=== PATIENT | female | born 1960 | race American Indian/Alaskan Native ===

== ENCOUNTER 2019-01-03 09:58 | Outpatient (CLI) | payer OTHER ==
--- NOTE | 2019-01-03 12:13 | Mammography Report ---
BILATERAL DIGITAL SCREENING MAMMOGRAM WITH CAD INDICATION: Routine screening mammography. TECHNIQUE: Digital bilateral 2D mammography was obtained in the craniocaudal and mediolateral obliq ue projections. This examination was interpreted with the benefit of Computer-Aided Detection analysi s. COMPARISON: None. FINDINGS: Breast Density: The breasts are almost entirely fatty. No mass, architectural distortion or suspicious calcifications. IMPRESSION:No mammographic evidence of malignancy. BI-RADS Category 1: Negative. No mammographic evidence of malignancy. Recommend routine screening m ammography in one year. A "normal" or negative report should not discourage follow up or biopsy of a clinically significant f inding. A written summary of these findings will be mailed to the patient. The patient will be entered into a mammography reporting system which will generate a reminder letter for the patient's next appointmen t at the appropriate interval. The [employer] recommends yearly mammograms starting at age 40 and continuing as l [place] as a woman is in good health. Breast MRI is recommended for women with an approximate 20-25% or greater lifetime risk of breast cancer, including women with a strong family history of breast or [place] cancer or who have been treated for Hodgkin's disease. Signer Name: Ulises Will MD Signed: 01/03/2019 12:09 PM Workstation Name: [id number]
== END 2019-01-03 09:59 | disposition home or self-care (01) ==
LOC: MAMMO 09:58
PROVIDERS: ATTEND Internal Medicine
DX: Z12.31 Encounter for screening mammogram for malignant neoplasm of breast (principal)
CPT/HCPCS: 77067

== ENCOUNTER 2021-04-24 11:26 | Outpatient (CLI) | payer OTHER | END 2021-04-24 11:27 | disposition home or self-care (01) | LOC: MAMMO 11:26 | DX: Z12.31 Encounter for screening mammogram for malignant neoplasm of breast (principal) | CPT/HCPCS: 77067 ==

== ENCOUNTER 2021-08-21 13:57 | Outpatient (CLI) | payer OTHER ==
--- NOTE | 2021-08-21 15:01 | XRay Report ---
CHEST 2 VIEWS INDICATION: ACUTE RESPIRTORY DISTRESS ACUTE ASTHMATIC BRONCHITIS HYPOTHYROID. COMPARISON: none FINDINGS: Support devices: None. Heart: Within normal limits. Lungs/pleura: No acute air space or interstitial disease. No pneumothorax. Additional findings: None. IMPRESSION: No acute findings. Signer Name: Hong Chambers Jr, MD Signed: 08/21/2021 2:56 PM Workstation Name: [id number]
== END 2021-08-21 13:58 | disposition home or self-care (01) ==
LOC: XRAY 13:57
PROVIDERS: ATTEND Internal Medicine
DX: R06.03 Acute respiratory distress (principal); J40 Bronchitis, not specified as acute or chronic
CPT/HCPCS: 71046

== ENCOUNTER 2022-01-28 11:31 | Outpatient (CLI) | payer OTHER ==
--- NOTE | 2022-01-28 15:29 | XRay Report ---
Right knee-2 views INDICATION: Z02.71 ENCOUNTER FOR DISABILITY DETERMINATION. COMPARISON: None available. IMPRESSION: No acute osseous abnormality. Normal alignment. Moderate tricompartmental DJD. Soft ti ssues are unremarkable. Signer Name: Aamir Nguyen MD Signed: 01/28/2022 3:25 PM Workstation Name: [id number]
--- NOTE | 2022-01-28 15:30 | XRay Report ---
Cervical spine-4 views INDICATION: Z02.71 ENCOUNTER FOR DISABILITY DETERMINATION. COMPARISON: None. IMPRESSION: Normal alignment. Moderate lower cervical discogenic DJD. No acute osseous or soft tis rolando abnormality. Signer Name: Aamir Nguyen MD Signed: 01/28/2022 3:25 PM Workstation Name: [id number]
--- NOTE | 2022-01-28 15:31 | XRay Report ---
Right shoulder-3 views INDICATION: Z02.71 ENCOUNTER FOR DISABILITY DETERMINATION. COMPARISON: None available. IMPRESSION: No acute osseous abnormality. Normal alignment. 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 Soft tissues are unremarkable. Signer Name: Aamir Nguyen MD Signed: 01/28/2022 3:27 PM Workstation Name: [id number]
== END 2022-01-28 11:32 | disposition home or self-care (01) ==
LOC: XRAY 11:31
PROVIDERS: ATTEND Internal Medicine
DX: Z02.71 Encounter for disability determination (principal); M19.011 Primary osteoarthritis, right shoulder; M47.812 Spondylosis without myelopathy or radiculopathy, cervical region; M17.11 Unilateral primary osteoarthritis, right knee
CPT/HCPCS: 72040